=== PATIENT | male | born 1950 | race Caucasian/White ===

== ENCOUNTER → 2018-01-09 07:57 | Outpatient (CLI) | payer OTHER, MEDICARE, SELFPAY ==
[2018-01-09 09:38] LABS: Alanine Aminotransferase 31 IU/L (21-72); Albumin 4.1 g/dL (3.5-5.0); Albumin Globulin Ratio 1.5 (1.0-2.8); Alkaline Phosphatase 58 U/L (38-126); Aspartate Aminotransferase 22 IU/L (17-59); BUN Creatinine Ratio 16.7 (6-22); Bilirubin Total 0.6 mg/dL (0.2-1.3); Blood Urea Nitrogen 15 mg/dL (9-20); Carbon Dioxide 28 mmol/L (22-32); Chloride 108 mmol/L (98-107); Cholesterol 187 mg/dL (140-199); Estimated Glomerular Filt Rate > 60.0 mL/min (>60); Globulin 2.8 g/dL (1.7-4.1); Glucose 98 mg/dL (80-110); HDL Cholesterol 45 mg/dL (40-60); HEMOLYSIS < 15 (0-50); LDL Cholesterol Calculated 118 mg/dL (<100); Potassium 4.8 mmol/L (3.4-5.1); Sodium 148 mmol/L (137-145); Total Protein 6.9 g/dL (6.3-8.2); Triglycerides 120 mg/dL (35-150)
[2018-01-09 10:05] LABS: Prostate Specific Antigen Scrn 0.323 ng/mL (0.1-4.0)
== END ==
PROVIDERS: PCP Internal Medicine; Visit Provider Internal Medicine
DX: I10 Essential (primary) hypertension (principal); Z12.5 Encounter for screening for malignant neoplasm of prostate
CPT/HCPCS: 36415; 80053; 80061; G0103

== ENCOUNTER 2018-07-02 09:00 | Outpatient (RCR) | payer OTHER, SELFPAY ==
--- NOTE | 2018-06-17 10:26 | PT.OIE ---
Current Diagnoses Acute embolism and thrombosis of unspecified deep veins of unspecified lower extremity (06/17/18) Post-traumatic osteoarthritis, left ankle and foot (06/17/18) Aftercare following joint replacement surgery (06/17/18) Past Medical History (Last Reviewed 01/15/18 @ 10:25 by Saúl Palacios MD) Essential hypertension (Chronic 02/08/17) Heterozygous factor V Leiden mutation (Chronic 06/29/16) History of deep venous thrombosis in adulthood (Chronic 08/10/16) Past Surgical History (Last Reviewed 01/15/18 @ 10:25 by Saúl Palaciso MD) History of hip replacement (06/15/17) Provider Visit Care Team Role Provider Type Saúl Palacios MD Primary Care Provider Physician Specialty: Internal Medicine Address: [address] [place] [address], [id number] Email: [email or web address] Mack Hanson MD Attending Provider Non-Staff Specialty: Orthopedics Address: [address] [place] [address], [place] [id number] [place] [address], [phone] Fax: Email: Physical Therapy Initial Evaluation PT-OP-A Visit Information Start: 06/14/18 15:52 Freq: Status: Active Protocol: Document 06/17/18 08:59 [facility] (Rec: 06/17/18 10:10 [facility] [id number]) Out-Patient Physical Therapy Visit Information Visit Information Visit Type Initial Evaluation Visit Start Time 09:00 Visit Stop Time 09:45 Total Visit Minutes 45 Visit Number 1/10 Number of PIPELINE SYSTEMS OPERATOR Visits 0 PT-OP-B Current Condition Start: 06/14/18 15:52 Freq: Status: Active Protocol: Document 06/17/18 08:59 [facility] (Rec: 06/17/18 10:10 [facility] [id number]) Current Condition History of Current Condition Onset Date 04/01/18 Current Complaints L total ankle replacement History of Current Condition Pt reports he has had a difficult year. Pt had a fall that started his hip and ankle pain. Pt had L BRISEIDA last Jun and recovered well from that. He now had L total ankle surgery on 04/01/18. Pt is walking now in a boot and has been working on ROM. Pt was nonweightbearing for a while and has slowly progressed to full weight bearing. He follows up with MD on 06/27. Last X-ray showed good healing per patient. 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, return to [employer] biking, try to do some hiking PT-OP-C Subjective Start: 06/14/18 15:52 Freq: Status: Active Protocol: Document 06/17/18 08:59 [facility] (Rec: 06/17/18 10:10 [facility] [id number]) Patient Questionnaires Foot & Ankle Ability Measure- ADL and Sports FAAM-ADL Score 52 FAAM-ADL Impairment 20 to 39% Impaired (Score 50- 66) FAAM-Sport Score 2 FAAM-Sport Impairment 80 to 99% Impaired (Score 1-5) Lower Extremity Functional Scale LEFS Score 45 LEFS Impairment 40 to 59% Impaired (Score 32- 47) OP-PT Pain Assessment Location L ankle Pain Location Details L ankle laterally Intensity 3 Scale Used Numeric (1 - 10) Frequency Intermittent Pain Duration goes away upon sitting down Pain Aggravating Factors Standing Walking Other Pain Aggravating Factors flexing it Pain Alleviating Factors Cold Inactivity Sitting PT-OP-F Manual Assessment Start: 06/14/18 15:52 Freq: Status: Active Protocol: Document 06/17/18 08:59 [facility] (Rec: 06/17/18 10:10 [facility] [id number]) Manual Assessments Soft Tissue Assessment Soft Tissue Mobility Assessment Ankle & lat myofascial restrictions, likely mostly d/ t scar PT-OP-G Mobility & Gait Start: 06/14/18 15:52 Freq: Status: Active Protocol: Document 06/17/18 08:59 [facility] (Rec: 06/17/18 10:10 [facility] [id number]) OP Gait Assessment Comments Gait Comments Pt amb with CAM boot at this time with full WB. PT-OP-K Range of Motion Start: 06/14/18 15:52 Freq: Status: Active Protocol: Document 06/17/18 08:59 [facility] (Rec: 06/17/18 10:10 [facility] [id number]) Ankle and Foot Goniometric Range of Motion Ankle and Foot Measured in Degrees Right Active Testing Position Sitting Dorsiflexion with Knee Flexed 18 Plantarflexion 55 Inversion 30 Eversion 15 Left Active Dorsiflexion with Knee Flexed 2 Dorsiflexion with Knee Extended 0 Plantarflexion 49 Inversion 21 Eversion 10 Toe Range of Motion Toe Measured in Degrees Left Great Toe MTP Flexion Active (degrees) 10 MTP Extension Active (degrees) 30 MTP Extension Passive (degrees) 36 PT-OP-M Strength Start: 06/14/18 15:52 Freq: Status: Active Protocol: Document 06/17/18 08:59 [facility] (Rec: 06/17/18 10:10 [facility] [id number]) Hip Strength Hip Manual Muscle Testing Left Flexion (L2) 5 Normal Extension (S1) 3+ Fair+ Abduction 5 Normal External Rotation 4 Good Internal Rotation 4 Good Right Flexion (L2) 5 Normal Extension (S1) 4 Good Abduction 5 Normal External Rotation 5 Normal Internal Rotation 5 Normal Knee Strength Knee Manual Muscle Testing Right Flexion (S2) 4+ Good+ Extension (L3) 5 Normal Left Flexion (S2) 4+ Good+ Extension (L3) 4 Good Ankle/Foot Strength Ankle and Foot Manual Muscle Testing Right Dorsiflexion (L4) 5 Normal Plantarflexion (S1) 5 Normal Inversion 5 Normal Eversion (S1) 5 Normal Left Dorsiflexion (L4) 4 Good Plantarflexion (S1) 4 Good Inversion 4 Good Eversion (S1) 4 Good Comments PF tested seated PT-OP-Q Treatments Start: 06/14/18 15:52 Freq: Status: Active Protocol: Document 06/17/18 08:59 [facility] (Rec: 06/17/18 10:10 [facility] [id number]) Therapeutic Exercises Sitting Exercises ankle circles Sitting Exercise Name ankle circles-both directions Side left Comments cues for large kotlik towel scrunch Sitting Exercise Name towel scrunch Side bilateral ABCs Sitting Exercise Name Ankle ABCs Side left Ankle 4 way ROM Sitting Exercise Name DF/PF & inversion/eversion Side left Gastroc/soleus stretch Sitting Exercise Name long sit and short sit gastroc /soleus stretch Side left Self-Care/Home Management Treatment Education Other Education edu to cont wearing the boot until MD clears him not to and edu to cont icing to help with swelling PT-OP-T Assessment and Plan Start: 06/14/18 15:52 Freq: Status: Active Protocol: Document 06/17/18 08:59 [facility] (Rec: 06/17/18 10:26 [facility] [id number]) Physical Therapy Assessment Rehab Potential Rehabilitation Potential Excellent Evaluation Complexity Number of Personal Factors/Comorbidities 3 or More Number of Body Systems Impaired 4 or More Clinical Presentation at Evaluation Evolving Impairments Impairments Activity Tolerance Balance Functional Activities Functional Mobility Gait Pain ROM Soft Tissue Mobility Strength Goals ROM/strength Short Term Goal (STG) Pt will have L ankle AROM within 5 degrees of R side allowing greater activity performance STG Duration 07/15/18 Usp Goal (LTG) Pt will test 5/5 with all LE strength, making his progression back to typical activities easier. LTG Duration 08/15/18 walking Short Term Goal (STG) Pt will be able to do typical daily walking without boot with no greater than 2/10 pain . STG Duration 07/15/18 Usp Goal (LTG) Pt will be able to walk up to 2 miles with good gait mechanics and no greater than 1/10 pain. 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 LTG Duration 08/15/18 Assessment Summary Assessment Pt presents 11 weeks s/p L Total ankle replacement. He is still using CAM boot until he follows up with MD on 06/27/18 , where the MD will make the determination of further progression. Pt's referal is written for progression of ROM of ankle, subtalar, midfoot and toes. He is limited in all joints of L ankle and would benefit from skilled PT in order to help progress him back to his typical active lifestyle. Physical Therapy Plan Frequency and Duration Frequency of Treatment 1-2x/week Duration of Treatment 2 months Plan of Care Start Date 06/17/18 Plan of Care End Date 08/15/18 Therapeutic Interventions Therapeutic Interventions Aquatic Therapy Balance Training Gait Training Home Exercise Program Joint Mobilizations Manual Therapy Neuromuscular Re-education Patient/Caregiver Education Self-Care/Home Management Soft Tissue Mobilization Taping Therapeutic Activities Therapeutic Exercises Modalities Cold Pack/Ice Massage Electric Stimulation Hot Packs Infrared Therapy Iontophoresis Ultrasound Next Visit Focus/Plan Next Note Type Treatment Note Next Visit Plan DF & PF from floor, toe stretching, 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
--- NOTE | 2018-06-17 10:26 | PT.OPPOC ---
Current Diagnoses Acute embolism and thrombosis of unspecified deep veins of unspecified lower extremity (06/17/18) Post-traumatic osteoarthritis, left ankle and foot (06/17/18) Aftercare following joint replacement surgery (06/17/18) Provider Visit Care Team Role Provider Type Saúl Palacios MD Primary Care Provider Physician Specialty: Internal Medicine Address: [address] [place] [address], [id number] Email: [email or web address] Mack Hanson MD Attending Provider Non-Staff Specialty: Orthopedics Address: [address] [place] [address], [place] [id number], [place], [address] Fax: Email: Plan Of Care PT-OP-T Assessment and Plan Start: 06/14/18 15:52 Freq: Status: Active Protocol: Document 06/17/18 08:59 [facility] (Rec: 06/17/18 10:26 [facility] [id number]) Physical Therapy Assessment Rehab Potential Rehabilitation Potential Excellent Evaluation Complexity Number of Personal Factors/Comorbidities 3 or More Number of Body Systems Impaired 4 or More Clinical Presentation at Evaluation Evolving Impairments Impairments Activity Tolerance Balance Functional Activities Functional Mobility Gait Pain ROM Soft Tissue Mobility Strength Goals ROM/strength Short Term Goal (STG) Pt will have L ankle AROM within 5 degrees of R side allowing greater activity performance STG Duration 07/15/18 Planogrammer Goal (LTG) Pt will test 5/5 with all LE strength, making his progression back to typical activities easier. LTG Duration 08/15/18 walking Short Term Goal (STG) Pt will be able to do typical daily walking without boot with no greater than 2/10 pain . STG Duration 07/15/18 Half-Way Goal (LTG) Pt will be able to walk up to 2 miles with good gait mechanics and no greater than 1/10 pain. 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 LTG Duration 08/15/18 Assessment Summary Assessment Pt presents 11 weeks s/p L Total ankle replacement. He is still using CAM boot until he follows up with on 06/27/18 , where the MD will make the determination of further progression. Pt's referal is written for progression of ROM of ankle, subtalar, midfoot and toes. He is limited in all joints of L ankle and would benefit from skilled PT in order to help progress him back to his typical active lifestyle. Physical Therapy Plan Frequency and Duration Frequency of Treatment 1-2x/week Duration of Treatment 2 months Plan of Care Start Date 06/17/18 Plan of Care End Date 08/15/18 Therapeutic Interventions Therapeutic Interventions Aquatic Therapy Balance Training Gait Training Home Exercise Program Joint Mobilizations Manual Therapy Neuromuscular Re-education Patient/Caregiver Education Self-Care/Home Management Soft Tissue Mobilization Taping Therapeutic Activities Therapeutic Exercises Modalities Cold Pack/Ice Massage Electric Stimulation Hot Packs Infrared Therapy Iontophoresis Ultrasound Next Visit Focus/Plan Next Note Type Treatment Note Next Visit Plan DF & PF from floor, toe stretching, marble turkey picker, PF stretching Plan of Care Dates Plan of Care Start Date 06/17/18 Plan of Care End Date 08/15/18 Please Sign and Return: I have reviewed this Plan of Care and certify that the skilled therapy services above are required to meet the patient?s needs. Physician Signature Date Printed Name and Credentials Clinical Instructor Signature Printed Name and Credentials
--- NOTE | 2018-07-02 09:56 | PT.OTN ---
Current Diagnoses Acute embolism and thrombosis of unspecified deep veins of unspecified lower extremity (07/02/18) Post-traumatic osteoarthritis, left ankle and foot (07/02/18) Aftercare following joint replacement surgery (07/02/18) Physical Therapy Treatment Note PT-OP-A Visit Information Start: 06/14/18 15:52 Freq: Status: Active Protocol: Document 07/02/18 09:08 [facility] (Rec: 07/02/18 09:56 [facility] [id number]) Out-Patient Physical Therapy Visit Information Visit Information Visit Type Treatment Note Visit Start Time 09:00 Visit Stop Time 09:45 Total Visit Minutes 45 Visit Number Number of SOLAR LAB TECHNICIAN Visits 0 PT-OP-B Current Condition Start: 06/14/18 15:52 Freq: Status: Active Protocol: Document 06/17/18 08:59 [facility] (Rec: 06/17/18 10:10 [facility] [id number]) Current Condition History of Current Condition Onset Date 04/01/18 Current Complaints L total ankle replacement History of Current Condition Pt reports he has had a difficult year. Pt had a fall that started his hip and ankle pain. Pt had L BRISEIDA last Jun and recovered well from that. He now had L total ankle surgery on 04/01/18. Pt is walking now in a boot and has been working on ROM. Pt was nonweightbearing for a while and has slowly progressed to full weight bearing. He follows up with MD on 06/27. Last X-ray showed good healing per patient. 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 Pt reports doctor took x rays and cleared him to wean out of boot. He has tried doing a day without it and his ankle got swollen so he wore it the next day. Presents without boot today. PT-OP-F Manual Assessment Start: 06/14/18 15:52 Freq: Status: Active Protocol: Document 06/17/18 08:59 [facility] (Rec: 06/17/18 10:10 [facility] [id number]) Manual Assessments Soft Tissue Assessment Soft Tissue Mobility Assessment Ankle & lat myofascial restrictions, likely mostly d/ t scar PT-OP-G Mobility & Gait Start: 06/14/18 15:52 Freq: Status: Active Protocol: Document 06/17/18 08:59 [facility] (Rec: 06/17/18 10:10 [facility] [id number]) OP Gait Assessment Comments Gait Comments Pt amb with CAM boot at this time with full WB. PT-OP-K Range of Motion Start: 06/14/18 15:52 Freq: Status: Active Protocol: Document 06/17/18 08:59 [facility] (Rec: 06/17/18 10:10 [facility] [id number]) Ankle and Foot Goniometric Range of Motion Ankle and Foot Measured in Degrees Right Active Testing Position Sitting Dorsiflexion with Knee Flexed 18 Plantarflexion 55 Inversion 30 Eversion 15 Left Active Dorsiflexion with Knee Flexed 2 Dorsiflexion with Knee Extended 0 Plantarflexion 49 Inversion 21 Eversion 10 Toe Range of Motion Toe Measured in Degrees Left Great Toe MTP Flexion Active (degrees) 10 MTP Extension Active (degrees) 30 MTP Extension Passive (degrees) 36 PT-OP-M Strength Start: 06/14/18 15:52 Freq: Status: Active Protocol: Document 06/17/18 08:59 [facility] (Rec: 06/17/18 10:10 [facility] [id number]) Hip Strength Hip Manual Muscle Testing Left Flexion (L2) 5 Normal Extension (S1) 3+ Fair+ Abduction 5 Normal External Rotation 4 Good Internal Rotation 4 Good Right Flexion (L2) 5 Normal Extension (S1) 4 Good Abduction 5 Normal External Rotation 5 Normal Internal Rotation 5 Normal Knee Strength Knee Manual Muscle Testing Right Flexion (S2) 4+ Good+ Extension (L3) 5 Normal Left Flexion (S2) 4+ Good+ Extension (L3) 4 Good Ankle/Foot Strength Ankle and Foot Manual Muscle Testing Right Dorsiflexion (L4) 5 Normal Plantarflexion (S1) 5 Normal Inversion 5 Normal Eversion (S1) 5 Normal Left Dorsiflexion (L4) 4 Good Plantarflexion (S1) 4 Good Inversion 4 Good Eversion (S1) 4 Good Comments PF tested seated PT-OP-Q Treatments Start: 06/14/18 15:52 Freq: Status: Active Protocol: Document 07/02/18 09:08 [facility] (Rec: 07/02/18 09:56 [facility] [id number]) Cardio Equipment Recumbent Elliptical (Biodex) Duration (Minutes) 5 Resistance 3-5 Seat Position 13 Therapeutic Exercises Sitting Exercises tband Sitting Exercise Name inv, eversion & DF Equipment Used L1 Reps/Minutes 15 ea DF Sitting Exercise Name DF Reps/Minutes 20 Comments w/knee bent to 90 and heel on floor marbles Sitting Exercise 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 Reps/Minutes 15 Standing Exercises heel raise Standing Exercise Name heel raise Reps/Minutes 2x10 gastroc Standing Exercise Name BRENNON Reps/Minutes 30 serc Gait Training Gait Activity mirror Description gait in mirror Comments focus on dec lat leaning & improved push off Manual Therapy Treatment Soft Tissue Mobilization scar tissue Body Location scar tissue ant foot Mobilization Type Myofascial Release Rolling Comments w/ passive DF & PF PT-OP-T Assessment and Plan Start: 06/14/18 15:52 Freq: Status: Active Protocol: Document 07/02/18 09:08 [facility] (Rec: 07/02/18 09:56 [facility] [id number]) Physical Therapy Assessment Goals ROM/strength Short Term Goal (STG) Pt will have L ankle AROM within 5 degrees of R side allowing greater activity performance STG Duration 07/15/18 Crabber Goal (LTG) Pt will test 5/5 with all LE strength, making his progression back to typical activities easier. LTG Duration 08/15/18 walking Short Term Goal (STG) Pt will be able to do typical daily walking without boot with no greater than 2/10 pain . STG Duration 07/15/18 [facility] Goal (LTG) Pt will be able to walk up to 2 miles with good gait mechanics and no greater than 1/10 pain. 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 LTG Duration 08/15/18 Assessment Summary Assessment Pt is doing well with ROM today and was able to progress with strengthening today. He cont to have lat lean with gait, which is able to improve with use of mirror and cueing . Physical Therapy Plan Frequency and Duration Frequency of Treatment 1-2x/week Duration of Treatment 2 months Plan of Care Start Date 06/17/18 Plan of Care End Date 08/15/18 Next Visit Focus/Plan Next Note Type Treatment Note Next Visit Plan big toe stretching & mobilization, pt self stretching into inversion, eversion & PF, cont to work on gait mechanics, start hip strengthening & balance
--- NOTE | 2018-08-26 11:09 | PT.OPDS ---
Current Diagnoses Acute embolism and thrombosis of unspecified deep veins of unspecified lower extremity (07/02/18) Post-traumatic osteoarthritis, left ankle and foot (07/02/18) Aftercare following joint replacement surgery (07/02/18) Provider Visit Care Team Role Provider Type Saúl Palacios MD Primary Care Provider Physician Specialty: Internal Medicine Address: [address] [place] [address], [phone] Email: [email or web address] Mack Hanson MD Attending Provider Non-Staff Specialty: Orthopedics Address: [address] [place] [address], [address], [place], [address] Fax: Email: Visit Number Visit Number Discharge Summary PT-OP-B Current Condition Start: 06/14/18 15:52 Freq: Status: Active Protocol: Document 06/17/18 08:59 [facility] (Rec: 06/17/18 10:10 [facility] [id number]) Current Condition History of Current Condition Onset Date 04/01/18 Current Complaints L total ankle replacement History of Current Condition Pt reports he has had a difficult year. Pt had a fall that started his hip and ankle pain. Pt had L BRISEIDA last Jun and recovered well from that. He now had L total ankle surgery on 04/01/18. Pt is walking now in a boot and has been working on ROM. Pt was nonweightbearing for a while and has slowly progressed to full weight bearing. He follows up with MD on 06/27. Last X-ray showed good healing per patient. 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 Pt reports doctor took x rays and cleared him to wean out of boot. He has tried doing a day without it and his ankle got swollen so he wore it the next day. Presents without boot today. PT-OP-F Manual Assessment Start: 06/14/18 15:52 Freq: Status: Active Protocol: Document 06/17/18 08:59 [facility] (Rec: 06/17/18 10:10 [facility] [id number]) Manual Assessments Soft Tissue Assessment Soft Tissue Mobility Assessment Ankle & lat myofascial restrictions, likely mostly d/ t scar PT-OP-G Mobility & Gait Start: 06/14/18 15:52 Freq: Status: Active Protocol: Document 06/17/18 08:59 [facility] (Rec: 06/17/18 10:10 [facility] [id number]) OP Gait Assessment Comments Gait Comments Pt amb with CAM boot at this time with full WB. PT-OP-K Range of Motion Start: 06/14/18 15:52 Freq: Status: Active Protocol: Document 06/17/18 08:59 [facility] (Rec: 06/17/18 10:10 [facility] [id number]) Ankle and Foot Goniometric Range of Motion Ankle and Foot Measured in Degrees Right Active Testing Position Sitting Dorsiflexion with Knee Flexed 18 Plantarflexion 55 Inversion 30 Eversion 15 Left Active Dorsiflexion with Knee Flexed 2 Dorsiflexion with Knee Extended 0 Plantarflexion 49 Inversion 21 Eversion 10 Toe Range of Motion Toe Measured in Degrees Left Great Toe MTP Flexion Active (degrees) 10 MTP Extension Active (degrees) 30 MTP Extension Passive (degrees) 36 PT-OP-M Strength Start: 06/14/18 15:52 Freq: Status: Active Protocol: Document 06/17/18 08:59 [facility] (Rec: 06/17/18 10:10 [facility] [id number]) Hip Strength Hip Manual Muscle Testing Left Flexion (L2) 5 Normal Extension (S1) 3+ Fair+ Abduction 5 Normal External Rotation 4 Good Internal Rotation 4 Good Right Flexion (L2) 5 Normal Extension (S1) 4 Good Abduction 5 Normal External Rotation 5 Normal Internal Rotation 5 Normal Knee Strength Knee Manual Muscle Testing Right Flexion (S2) 4+ Good+ Extension (L3) 5 Normal Left Flexion (S2) 4+ Good+ Extension (L3) 4 Good Ankle/Foot Strength Ankle and Foot Manual Muscle Testing Right Dorsiflexion (L4) 5 Normal Plantarflexion (S1) 5 Normal Inversion 5 Normal Eversion (S1) 5 Normal Left Dorsiflexion (L4) 4 Good Plantarflexion (S1) 4 Good Inversion 4 Good Eversion (S1) 4 Good Comments PF tested seated PT-OP-T Assessment and Plan Start: 06/14/18 15:52 Freq: Status: Active Protocol: Document 08/26/18 11:09 [facility] (Rec: 08/26/18 11:09 [facility] [id number]) Physical Therapy Plan Discharge Physical Therapy Discharge Reasons Patient Request Discharge Comments Pt seen for 2 appointments and then cancelled all further appointments reporting he felt better. D/c per pt request.
== END 2018-08-28 09:57 | disposition home or self-care (01) ==
LOC: PHYS 09:00
PROVIDERS: PCP Internal Medicine; Visit Provider Orthopaedic Surgery Foot and Ankle Surgery
DX: M19.172 Post-traumatic osteoarthritis, left ankle and foot (principal); I82.409 Acute embolism and thrombosis of unspecified deep veins of unspecified lower extremity; Z47.1 Aftercare following joint replacement surgery
CPT/HCPCS: 97110; 97140; 97162

== ENCOUNTER → 2019-02-18 07:28 | Outpatient (CLI) | payer OTHER, SELFPAY ==
[2019-02-18 08:00] LABS: Add Manual Diff / Slide Review NO; Basophils Absolute Auto 100 /uL (0-100); Basophils Percent Auto 1.3 % (0-2); Eosinophils Absolute Auto 200 /uL (0-450); Eosinophils Percent Auto 3.6 % (2-4); Hematocrit 48.1 % (41-53); Hemoglobin 15.9 g/dL (13.5-17.5); Lymphocytes Absolute Auto 1500 /uL (1100-4500); Mean Corpuscular HGB Conc 32.9 % (30-36); Mean Corpuscular Hemoglobin 26.5 PG (26-34); Mean Corpuscular Volume 80.5 fL (80-100); Monocytes Absolute Auto 400 /uL (0-900); Monocytes Percent Auto 7.9 % (3-14); Neutrophils Absolute Auto 3200 /uL (1500-7000); Neutrophils Percent Auto 59.2 % (50-75); Platelet Count 231 X10^3/uL (150-400); Red Blood Cell Count 5.98 X10^6/uL (4.5-5.9); Red Cell Distribution Width 15.5 % (11.6-14.8); White Blood Cell Count 5.4 X10^3/uL (4.5-11.0)
[2019-02-18 08:08] LABS: Alanine Aminotransferase 30 IU/L (21-72); Albumin 4.3 g/dL (3.5-5.0); Albumin Globulin Ratio 1.3 (1.0-2.8); Alkaline Phosphatase 60 U/L (38-126); Aspartate Aminotransferase 26 IU/L (17-59); BUN Creatinine Ratio 18.9 (6-22); Bilirubin Total 0.6 mg/dL (0.2-1.3); Blood Urea Nitrogen 17 mg/dL (9-20); Carbon Dioxide 29 mmol/L (22-32); Chloride 103 mmol/L (98-107); Cholesterol 216 mg/dL (140-199); Estimated Glomerular Filt Rate > 60.0 mL/min (>60); Globulin 3.2 g/dL (1.7-4.1); Glucose 102 mg/dL (80-110); HDL Cholesterol 39 mg/dL (40-60); HEMOLYSIS < 15 (0-50); LDL Cholesterol Calculated 147 mg/dL (<100); Potassium 4.2 mmol/L (3.4-5.1); Sodium 142 mmol/L (137-145); Total Protein 7.5 g/dL (6.3-8.2); Triglycerides 149 mg/dL (35-150)
[2019-02-18 08:37] LABS: Prostate Specific Antigen Scrn 0.282 ng/mL (0.1-4.0)
== END ==
PROVIDERS: PCP Internal Medicine; Visit Provider Internal Medicine
DX: D68.51 Activated protein C resistance (principal); I10 Essential (primary) hypertension; Z79.01 Long term (current) use of anticoagulants; Z86.718 Personal history of other venous thrombosis and embolism; Z12.5 Encounter for screening for malignant neoplasm of prostate
CPT/HCPCS: 36415; 80053; 80061; 85025; G0103

== ENCOUNTER → 2021-06-15 07:04 | Outpatient (CLI) | payer MEDICARE, OTHER, SELFPAY ==
[2021-06-15 09:26] LABS: Add Manual Diff / Slide Review NO; Basophils Absolute Auto 0 /uL (0-100); Basophils Percent Auto 0.7 % (0-2); Eosinophils Absolute Auto 200 /uL (0-450); Eosinophils Percent Auto 3.9 % (2-4); Hematocrit 47.4 % (41-53); Hemoglobin 15.8 g/dL (13.5-17.5); Lymphocytes Absolute Auto 1100 /uL (1100-4500); Lymphocytes Percent Auto 23.4 % (25-40); Mean Corpuscular HGB Conc 33.3 % (30-36); Mean Corpuscular Hemoglobin 26.7 PG (26-34); Mean Corpuscular Volume 80.2 fL (80-100); Monocytes Absolute Auto 700 /uL (0-900); Neutrophils Absolute Auto 2800 /uL (1500-7000); Platelet Count 182 X10^3/uL (150-400); Red Blood Cell Count 5.92 X10^6/uL (4.5-5.9); Red Cell Distribution Width 15.2 % (11.6-14.8); White Blood Cell Count 4.7 X10^3/uL (4.5-11.0)
[2021-06-15 10:08] LABS: Alanine Aminotransferase 25 IU/L (<50); Albumin 4.3 g/dL (3.5-5.0); Albumin Globulin Ratio 1.5 (1.0-2.8); Alkaline Phosphatase 56 U/L (38-126); Aspartate Aminotransferase 27 IU/L (17-59); BUN Creatinine Ratio 13.9 (6-22); Bilirubin Total 0.7 mg/dL (0.2-1.3); Blood Urea Nitrogen 16 mg/dL (9-20); Calcium 10.3 mg/dL (8.4-10.2); Carbon Dioxide 30 mmol/L (22-32); Chloride 104 mmol/L (98-107); Cholesterol 199 mg/dL (140-199); Estimated Glomerular Filt Rate > 60.0 mL/min (>60); Globulin 2.9 g/dL (1.7-4.1); Glucose 91 mg/dL (80-110); HDL Cholesterol 30 mg/dL (40-60); HEMOLYSIS < 15 (0-50); LDL Cholesterol Calculated 138 mg/dL (<100); Sodium 142 mmol/L (137-145); Total Protein 7.2 g/dL (6.3-8.2); Triglycerides 153 mg/dL (35-150)
[2021-06-15 10:33] LABS: Prostate Specific Antigen Scrn 0.382 ng/mL (0.1-4.0)
== END ==
PROVIDERS: PCP Internal Medicine; Referring Provider Internal Medicine; Visit Provider Internal Medicine
DX: I10 Essential (primary) hypertension (principal); Z12.5 Encounter for screening for malignant neoplasm of prostate; D68.51 Activated protein C resistance; Z86.718 Personal history of other venous thrombosis and embolism
CPT/HCPCS: 36415; 80053; 80061; 85025; G0103

== ENCOUNTER → 2022-08-04 11:47 | Outpatient (CLI) | payer MEDICARE, OTHER, SELFPAY ==
[2022-08-04 13:09] LABS: Add Manual Diff / Slide Review NO; Basophils Absolute Auto 0 /uL (0-100); Basophils Percent Auto 0.8 % (0-2); Eosinophils Absolute Auto 300 /uL (0-450); Eosinophils Percent Auto 5.5 % (2-4); Hematocrit 49.2 % (41-53); Hemoglobin 16.1 g/dL (13.5-17.5); Lymphocytes Absolute Auto 1800 /uL (1100-4500); Lymphocytes Percent Auto 33.3 % (25-40); Mean Corpuscular HGB Conc 32.7 % (30-36); Mean Corpuscular Hemoglobin 26.3 PG (26-34); Mean Corpuscular Volume 80.3 fL (80-100); Monocytes Absolute Auto 500 /uL (0-900); Monocytes Percent Auto 8.9 % (3-14); Neutrophils Absolute Auto 2700 /uL (1500-7000); Neutrophils Percent Auto 51.5 % (50-75); Platelet Count 190 X10^3/uL (150-400); Red Blood Cell Count 6.12 X10^6/uL (4.5-5.9); Red Cell Distribution Width 15.8 % (11.6-14.8); White Blood Cell Count 5.3 X10^3/uL (4.5-11.0)
[2022-08-04 13:40] LABS: Alanine Aminotransferase 26 IU/L (<50); Albumin 4.3 g/dL (3.5-5.0); Albumin Globulin Ratio 1.3 (1.0-2.8); Alkaline Phosphatase 61 U/L (38-126); Aspartate Aminotransferase 26 IU/L (17-59); BUN Creatinine Ratio 18.8 (6-22); Bilirubin Total 0.6 mg/dL (0.2-1.3); Blood Urea Nitrogen 18 mg/dL (9-20); Calcium 9.9 mg/dL (8.4-10.2); Carbon Dioxide 28 mmol/L (22-32); Chloride 104 mmol/L (98-107); Estimated Glomerular Filt Rate > 60 mL/min (>60); Globulin 3.2 g/dL (1.7-4.1); Glucose 80 mg/dL (80-110); HEMOLYSIS < 15 (0-50); Potassium 4.4 mmol/L (3.4-5.1); Sodium 139 mmol/L (137-145); Total Protein 7.5 g/dL (6.3-8.2)
== END ==
PROVIDERS: PCP Internal Medicine; Referring Provider Internal Medicine; Visit Provider Internal Medicine
DX: D68.51 Activated protein C resistance (principal); I10 Essential (primary) hypertension; Z86.718 Personal history of other venous thrombosis and embolism
CPT/HCPCS: 36415; 80053; 85025

== ENCOUNTER 2022-11-26 09:32 | Emergency (ER) | payer MEDICARE, OTHER, SELFPAY ==
[2022-11-26 09:35] VITALS: BP 147/87; PULSE 62; RESP 16; TEMP 36.3; O2SAT 97; BMI 28.5
[2022-11-26 09:43] VITALS: PULSE 62; O2SAT 98
[2022-11-26 10:00] VITALS: PULSE 56; O2SAT 96
--- NOTE | 2022-11-26 10:22 | ED.HA ---
HPI - Headache General Chief Complaint: Headache Stated Complaint: migraine headache per pt Time Seen by Provider: 11/26/22 09:57 Source: patient, RN notes reviewed and old records reviewed Mode of arrival: Ambulatory Limitations: no limitations History of Present Illness HPI Narrative: This is a 72-year-old male history of factor 5 Leiden, pulmonary emboli, hypertension who presents with complaint of headache for the past week. Patient states insert started gradually he is had headaches in the past typically in the evenings or night times but this is more intense than his typical. Has been increasing over time and has been persistent. We will sometimes go away but has overall been present the entire time. He denies any sudden thunderclap or acute onset. Describes it as sort of all over. No rash or skin changes. Does state it is probably 1 of the worst headaches he is had. He states he has been trying Tylenol without any improvement. He notes that he would traveled overseas the [place] area was very warm over there. He states it was not a very pleasant stay but denies any other infectious contacts or other changes. Denies any trauma. He states it radiates down his neck little bit but no trouble moving head and movement does not worsened it. He denies any back pain. He denies any vision changes, light seem to bother it a little bit but not significant photophobia or phonophobia. No chest pain, no shortness of breath, no nausea no vomiting. No diarrhea constipation, no dysuria urgency or frequency. He noticed urine was little bit darker so he is backed off on the Tylenol. He denies any numbness, tingling or weakness, no vertigo, no difficulty with balance or gait. Patient states he did notice he was sweaty nighttime 1 or 2 nights. He has not had any fevers that he is aware of. He denies any upper respiratory congestive symptoms. He is on Eliquis after developing pulmonary emboli 5 or 6 years ago, states he had blood work sent and was told that he is hypercoagulable. He does not know the name of that. Patient states he does take medication for hypertension. His only medications are Eliquis and lisinopril according to the patient. He is had orthopedic surgeries in the past including ankle, hip and elbow, appendectomy. Chews tobacco, no alcohol, no illicit. Dr. Palacios is his primary care. Related Data Previous Rx's Medication Instructions Recorded apixaban 5 mg tablet (Eliquis) 5 mg PO BID #180 tabs 08/04/22 lisinopril 40 mg tablet 40 mg PO DAILY #90 tabs 08/04/22 amoxicillin 875 mg-potassium 1 tab PO Q8H #30 tabs 11/26/22 clavulanate 125 mg tablet hydrocodone 5 mg-acetaminophen 325 1 tab PO Q6H PRN pain #10 tabs 11/26/22 mg tablet Allergies Allergy/AdvReac Type Severity Reaction Status Date / Time No Known Drug Allergies Allergy Verified 08/04/22 11:30 Review of Systems Review of Systems ROS Unobtainable: All systems reviewed & are unremarkable except as noted in HPI and below Patient History Medical History 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 keisha/jehovah's witness: [employer] leisure activities: exercise and fishing Smoking Status: Never smoker Tobacco: How many years used: 0 Smokeless tobacco user: chewing tobacco quit status: has quit before second hand exposure: No alcohol intake: former substance use type: does not use Smoking Status: Never smoker Exam Narrative Exam Narrative: GEN: well nourished, well appearing male, alert and oriented x 3, patient appears to be in mild distress. HEENT: Atraumatic, pupils are equal round reactive to light, extraocular movements are intact, no photophobia, no phonophobia nares are clear no temporal tenderness,, TMs are clear with no fluid, there is no conjunctival pallor. Throat is clear without any exudates, erythema, tonsillar enlargement or uvular deviation HEART: Regular rate and rhythm without murmur, clicks, rubs. No carotid bruits, pulses are equal in upper and lower extremities LUNGS:Lungs clear to auscultation, no wheezes, rales, crackles, chest moves symmetrically ABD:bowel sounds normal, soft, non-tender, no guarding, rebound, rigidity, no masses noted, no hepatosplenomegaly :No CVA tenderness MSCL: Non-tender, no muscle atrophy, muscles strength 5/5 upper and lower extremities, full range of motion, normal gait NEURO:CN 2-12 intact, sensation normal, reflexes 2/4 upper and lower extremities. finger nose finger test normal, heel sahni test normal. No dysarthria. No aphasia. SKIN: No rash, erythema or other skin changes appreciated. Initial Vital Signs Initial Vital Signs: Vital Signs Temperature 97.3 F L 11/26/22 09:35 Pulse Rate 62 11/26/22 09:35 Respiratory Rate 16 11/26/22 09:35 Blood Pressure 147/87 H 11/26/22 09:35 Pulse Oximetry 97 11/26/22 09:35 Oxygen Delivery Method Room Air 11/26/22 09:35 Course Orders Ordered: ED Orders 11/26/22 09:54 CRP [C-Reactive Protein Quant] Stat Complete Blood Count AUTO DIFF Stat Comprehensive Metabolic Panel Stat ESR [Erythrocyte Sedimentation Rate] Stat PTT Partial Thromboplastin Jhon Stat Procalcitonin Stat Prothrombin Time INR Stat 11/26/22 10:32 CT head/brain wo con Stat Discontinued Medications Hydrocodone Bitart/Acetaminophen (Hydrocodone/Acet 5/325 Tablet) 2 tab PO NOW ONE Stop: 11/26/22 12:14 Last Admin: 11/26/22 12:19 Dose: 2 tab Documented By: ANGELO Sodium Chloride (Normal Saline 0.9%) 1,000 mls @ 1,000 mls/hr IV BOLUS ONE Stop: 11/26/22 11:31 Last Infusion: 11/26/22 12:10 Dose: 0 mls/hr Documented By: Admin: 11/26/22 10:52 Dose: 1,000 mls/hr Documented By: MPO Ketorolac Tromethamine (Ketorolac 30 Mg/Ml Vial) 15 mg IV NOW ONE Stop: 11/26/22 11:20 Last Admin: 11/26/22 11:25 Dose: 15 mg Documented By: ROSHNI Metoclopramide HCl (Metoclopramide 10 Mg/2 Ml Inj) 10 mg IV NOW ONE Stop: 11/26/22 10:33 Last Admin: 11/26/22 10:52 Dose: 10 mg Documented By: ROSHNI Vital Signs Vital signs: Vital Signs - 8 hr 11/26/22 09:35 11/26/22 09:43 11/26/22 10:00 Temperature 97.3 F L Pulse Rate 62 62 56 L Respiratory Rate 16 Blood Pressure 147/87 H Pulse Oximetry 97 98 96 Oxygen Delivery Method Room Air 11/26/22 12:31 Temperature Pulse Rate 62 Respiratory Rate 16 Blood Pressure 134/77 Pulse Oximetry 97 Oxygen Delivery Method Room Air MDM - Headache Lab Data 11/26/22 09:54 11/26/22 09:54 Labs: Lab Results 11/26/22 11/26/22 11/26/22 Range/Units 09:54 09:54 09:54 WBC 6.0 (4.5-11.0) X10^3/uL RBC 5.68 (4.5-5.9) X10^6/uL Hgb 15.0 (13.5-17.5) g/dL Hct 45.1 (41-53) % MCV 79.4 L (80-100) fL MCH 26.5 (26-34) PG MCHC 33.3 (30-36) % RDW 15.3 H (11.6-14.8) % Plt Count 196 (150-400) X10^3/uL Neut % (Auto) 75.3 H (50-75) % Lymph % (Auto) 14.1 L (25-40) % Wilcox % (Auto) 6.3 (3-14) % Eos % (Auto) 3.6 (2-4) % Baso % (Auto) 0.7 (0-2) % Neut # (Auto) 4500 (8298-2225) /uL Lymph # (Auto) 800 L (9146-0229) /uL Wilcox # (Auto) 400 (0-900) /uL Eos # (Auto) 200 (0-450) /uL Baso # (Auto) 0 (0-100) /uL ESR (0-15) MM/HR PT 14.7 H (10.1-12.7) SECONDS INR 1.3 (0.9-1.3) APTT 33 (26-36) SECONDS Sodium 137 (137-145) mmol/L Potassium 4.4 (3.4-5.1) mmol/L Chloride 104 (98-107) mmol/L Carbon Dioxide 26 (22-32) mmol/L BUN 15 (9-20) mg/dL Creatinine 0.85 (0.66-1.25) mg/dL Estimated GFR > 60 (>60) mL/min BUN/Creatinine Ratio 17.6 (6-22) Glucose 109 (80-110) mg/dL Calcium 9.4 (8.4-10.2) mg/dL Total Bilirubin 0.8 (0.2-1.3) mg/dL AST 45 (17-59) IU/L ALT 98 H (<50) IU/L Alkaline Phosphatase 154 H (38-126) U/L C-Reactive Protein (<1.0) mg/dL Total Protein 7.3 (6.3-8.2) g/dL Albumin 4.0 (3.5-5.0) g/dL Globulin 3.3 (1.7-4.1) g/dL Albumin/Globulin Ratio 1.2 (1.0-2.8) Procalcitonin 0.29 (<0.5) ng/mL 11/26/22 11/26/22 Range/Units 09:54 09:54 WBC (4.5-11.0) X10^3/uL RBC (4.5-5.9) X10^6/uL Hgb (13.5-17.5) g/dL Hct (41-53) % MCV (80-100) fL MCH (26-34) PG MCHC (30-36) % RDW (11.6-14.8) % Plt Count (150-400) X10^3/uL Neut % (Auto) (50-75) % Lymph % (Auto) (25-40) % Wilcox % (Auto) (3-14) % Eos % (Auto) (2-4) % Baso % (Auto) (0-2) % Neut # (Auto) (1024-1111) /uL Lymph # (Auto) (9093-8231) /uL Wilcox # (Auto) (0-900) /uL Eos # (Auto) (0-450) /uL Baso # (Auto) (0-100) /uL ESR 9 (0-15) MM/HR PT (10.1-12.7) SECONDS INR (0.9-1.3) APTT (26-36) SECONDS Sodium (137-145) mmol/L Potassium (3.4-5.1) mmol/L Chloride (98-107) mmol/L Carbon Dioxide (22-32) mmol/L BUN (9-20) mg/dL Creatinine (0.66-1.25) mg/dL Estimated GFR (>60) mL/min BUN/Creatinine Ratio (6-22) Glucose (80-110) mg/dL Calcium (8.4-10.2) mg/dL Total Bilirubin (0.2-1.3) mg/dL AST (17-59) IU/L ALT (<50) IU/L Alkaline Phosphatase (38-126) U/L C-Reactive Protein 3.1 H (<1.0) mg/dL Total Protein (6.3-8.2) g/dL Albumin (3.5-5.0) g/dL Globulin (1.7-4.1) g/dL Albumin/Globulin Ratio (1.0-2.8) Procalcitonin (<0.5) ng/mL MDM Narrative Medical decision making narrative: 72-year-old male with gradual onset worsening headache he is anticoagulated no recent trauma, he does not have any other red flag symptoms noted he was sweaty at night 1 or 2 nights but no other function infectious changes. Patient has tried Tylenol without improvement. No acute neurologic changes on examination. His exam is overall benign. No significant photophobia or phonophobia come he is not had migraines in the past. Patient denies sudden thunderclap onset and states that was sort of gradual he is had headaches on and off at nighttime in the past but this is more persistent and more intense. Head CT, labs were obtained. Head CT shows pansinusitis of the ethmoid, sphenoid and left maxillary, no bleed, no mass no other acute changes. Labs show normal white count but slight leftward shift, normal electrolytes renal function, AST ALT phos are slightly elevated C-reactive protein 3.1. Pro callus negative. ESR is 9. After further discussion does describe a lot of sinus pressure. Patient has been using nasal saline and Flonase as needed. Discussed with patient will cover for sinusitis he did have some sweats but no other documented fevers. He has been doing appropriate therapies for potential sinusitis not finding other acute changes or examination findings that prompt me for lumbar puncture or further workup. Patient received fluids and medication on recheck. Patient had some improvement he still little bit uncomfortable we will give a dose of oral pain medication here. Discussed with patient plan, return precautions, he does think he likely has a sinusitis and does not feel for need for further workup. Discharge Plan Departure Patient Disposition: Home Clinical Impression: Pansinusitis Instructions: DI for Sinusitis Activity Restrictions/Additional Instructions: Your imaging shows changes to the sinuses of your ethmoid, left frontal maxillary and sphenoid sinuses consistent with some infection. This maybe causing your headache. I would recommend Flonase, antibiotic and nasal rinses to see if this improves your symptoms. Use Flonase 1-2 sprays to both nostrils once daily. You may take 1-2 tablets of narcotic pain medication every 6 hours needed. This medication can make you sleepy do not drive, perform hazardous activities or make any major decisions while taking it. This medication will make you constipated please take a stool softener once to twice daily until stools are soft and regular. Take oral antibiotics until completed. Prescription sent to [facility] in [place]. Please return for fevers if you are having worsening headaches, new vision changes, new numbness, tingling weakness, difficulty with moving your extremities, persistent vomiting, passing out, new chest pain or shortness of breath or other new or concerning changes. Prescriptions: New amoxicillin-pot clavulanate 875-125 mg tablet 1 tab PO Q8H Qty: 30 0RF hydrocodone-acetaminophen 5-325 mg tablet 1 tab PO Q6H PRN (Reason: pain) Qty: 10 0RF No Action Eliquis 5 mg tablet 5 mg PO BID Qty: 180 3RF lisinopril 40 mg tablet 40 mg PO DAILY Qty: 90 3RF Hold Instructions: no change in bp Referrals: Saúl Palacios MD [Primary Care Provider] - Stand Alone Forms: Patient Portal/API
--- NOTE | 2022-11-26 10:32 | DI.CT.S_ITS ---
PROCEDURE: CT HEAD/BRAIN WO CON INDICATIONS: huffman x 1 week, no resolution on apixaban TECHNIQUE: Noncontrast 4.5 mm thick angled axial sections acquired from the foramen magnum to the vertex, with coronal and sagittal reformats. For radiation dose reduction, the following was used: automated exposure control, adjustment of mA and/or kV according to patient size. COMPARISON: None. FINDINGS: Image quality: Excellent. CSF spaces: Basal cisterns are patent. No extra-axial fluid collections. Ventricles are normal in size and shape. Brain: No midline shift. No intracranial masses or hemorrhage. West-white matter interface is normal. Skull and face: Calvarium and visualized facial bones are intact, without suspicious lesions. Sinuses: Moderate mucosal thickening involving multiple ethmoid sinuses as well as the frontal left maxillary, and sphenoid sinuses. Mastoid air cells appear clear. IMPRESSION: CT head without acute intracranial abnormalities. Pansinus disease most pronounced in the ethmoid sinuses. Dictated by: Dawson Trejo M.D. on 11/26/2022 at 9:55 Approved by: Dawson Trejo M.D. on 11/26/2022 at 9:57
[2022-11-26 10:43] LABS: INR 1.3 (0.9-1.3); Prothrombin Time 14.7 SECONDS (10.1-12.7)
[2022-11-26] MEDS: SODIUM CHLORIDE 0.9% 1,000 ML 1000 ML IV (10:52)
[2022-11-26] MEDS: METOCLOPRAMIDE 10 MG/2 ML INJ IV (10:52)
[2022-11-26 11:03] LABS: Alanine Aminotransferase 98 IU/L (<50); Albumin Globulin Ratio 1.2 (1.0-2.8); Alkaline Phosphatase 154 U/L (38-126); Aspartate Aminotransferase 45 IU/L (17-59); BUN Creatinine Ratio 17.6 (6-22); Bilirubin Total 0.8 mg/dL (0.2-1.3); Blood Urea Nitrogen 15 mg/dL (9-20); Calcium 9.4 mg/dL (8.4-10.2); Carbon Dioxide 26 mmol/L (22-32); Chloride 104 mmol/L (98-107); Estimated Glomerular Filt Rate > 60 mL/min (>60); Globulin 3.3 g/dL (1.7-4.1); Glucose 109 mg/dL (80-110); HEMOLYSIS < 15 (0-50); Potassium 4.4 mmol/L (3.4-5.1); Sodium 137 mmol/L (137-145); Total Protein 7.3 g/dL (6.3-8.2)
[2022-11-26 11:18] LABS: Add Manual Diff / Slide Review NO; Basophils Absolute Auto 0 /uL (0-100); Basophils Percent Auto 0.7 % (0-2); Eosinophils Absolute Auto 200 /uL (0-450); Eosinophils Percent Auto 3.6 % (2-4); Hematocrit 45.1 % (41-53); Lymphocytes Absolute Auto 800 /uL (1100-4500); Lymphocytes Percent Auto 14.1 % (25-40); Mean Corpuscular HGB Conc 33.3 % (30-36); Mean Corpuscular Hemoglobin 26.5 PG (26-34); Mean Corpuscular Volume 79.4 fL (80-100); Monocytes Absolute Auto 400 /uL (0-900); Monocytes Percent Auto 6.3 % (3-14); Neutrophils Absolute Auto 4500 /uL (1500-7000); Neutrophils Percent Auto 75.3 % (50-75); Platelet Count 196 X10^3/uL (150-400); Red Blood Cell Count 5.68 X10^6/uL (4.5-5.9); Red Cell Distribution Width 15.3 % (11.6-14.8)
[2022-11-26 11:19] LABS: Procalcitonin 0.29 ng/mL (<0.5)
[2022-11-26 11:23] LABS: Erythrocyte Sedimentation Rate 9 MM/HR (0-15)
[2022-11-26] MEDS: KETOROLAC 30 MG/ML VIAL 15 MG IV (11:25)
[2022-11-26 11:46] LABS: PTT Partial Thromboplastin Tim 33 SECONDS (26-36)
[2022-11-26 11:47] LABS: C-Reactive Protein Quant 3.1 mg/dL (<1.0)
[2022-11-26] MEDS: HYDROCODONE/ACET 5/325 TABLET 2 TAB PO (12:19)
[2022-11-26 12:31] VITALS: BP 134/77; PULSE 62; RESP 16; O2SAT 97
== END 2022-11-26 12:31 | disposition home or self-care (01) ==
PROVIDERS: Emergency Provider Emergency Medicine; PCP Internal Medicine
DX: J32.4 Chronic pansinusitis (principal); R51.9 Headache, unspecified; Z79.01 Long term (current) use of anticoagulants
CPT/HCPCS: 36415; 70450; 80053; 84145; 85025; 85610; 85651; 85730; 86140; 96374; 96375; 99284; J1885; J2765

== ENCOUNTER → 2023-08-16 06:46 | Outpatient (CLI) | payer MEDICARE, OTHER, SELFPAY ==
[2023-08-16 08:39] LABS: Add Manual Diff / Slide Review NO; Basophils Absolute Auto 0 /uL (0-100); Basophils Percent Auto 0.6 % (0-2); Eosinophils Absolute Auto 200 /uL (0-450); Eosinophils Percent Auto 4.7 % (2-4); Hematocrit 48.6 % (41-53); Hemoglobin 15.8 g/dL (13.5-17.5); Lymphocytes Absolute Auto 1700 /uL (1100-4500); Lymphocytes Percent Auto 31.7 % (25-40); Mean Corpuscular HGB Conc 32.6 % (30-36); Mean Corpuscular Hemoglobin 26.4 PG (26-34); Monocytes Absolute Auto 600 /uL (0-900); Monocytes Percent Auto 10.8 % (3-14); Neutrophils Absolute Auto 2800 /uL (1500-7000); Neutrophils Percent Auto 52.2 % (50-75); Platelet Count 193 X10^3/uL (150-400); Red Blood Cell Count 5.99 X10^6/uL (4.5-5.9); White Blood Cell Count 5.3 X10^3/uL (4.5-11.0)
[2023-08-16 09:02] LABS: Alanine Aminotransferase 25 IU/L (<50); Albumin Globulin Ratio 1.3 (1.0-2.8); Alkaline Phosphatase 60 U/L (38-126); Aspartate Aminotransferase 29 IU/L (17-59); BUN Creatinine Ratio 18.6 (6-22); Bilirubin Total 0.6 mg/dL (0.2-1.3); Blood Urea Nitrogen 19 mg/dL (9-20); Calcium 10.1 mg/dL (8.4-10.2); Carbon Dioxide 29 mmol/L (22-32); Chloride 106 mmol/L (98-107); Cholesterol 213 mg/dL (140-199); Estimated Glomerular Filt Rate > 60 mL/min (>60); Glucose 94 mg/dL (80-110); HDL Cholesterol 40 mg/dL (40-60); HEMOLYSIS < 15 (0-50); LDL Cholesterol Calculated 149 mg/dL (<100); Potassium 4.8 mmol/L (3.4-5.1); Sodium 141 mmol/L (137-145); Triglycerides 122 mg/dL (35-150)
== END ==
LOC: LAB 06:47
PROVIDERS: PCP Internal Medicine; Referring Provider Internal Medicine; Visit Provider Internal Medicine
DX: I10 Essential (primary) hypertension (principal); D68.51 Activated protein C resistance; Z79.01 Long term (current) use of anticoagulants
CPT/HCPCS: 36415; 80053; 80061; 85025

== ENCOUNTER → 2023-08-27 09:31 | Outpatient (CLI) | payer MEDICARE, OTHER, SELFPAY ==
--- NOTE | 2023-08-27 09:34 | DI.CT.S_ITS ---
PROCEDURE: CT KNEE RIGHT WITHOUT CON INDICATIONS: Pain in right ankle and joints of right foot TECHNIQUE: Noncontrast 1-1.5 mm axial sections acquired from the mid-patella to the proximal tibia, with coronal and sagittal reformats. COMPARISON: None. FINDINGS: Image quality: Excellent. Bones: Moderate tricompartmental osteoarthritis is seen most notably in medial femoral tibial compartment with joint space narrowing, subchondral sclerosis and marginal osteophyte formation. There is no acute fracture or dislocation. Slight lateral subluxation of patella is noted. No suspicious bony lesions. Nonspecific subcortical cystic changes are noted involving base of tibial spine near ACL and PCL insertions. Soft tissues: There is no abnormal soft tissue calcifications. Moderate size right knee joint effusion is noted, no calcified intra-articular loose bodies. Distal quadriceps tendon and patellar tendon are grossly intact. No definite full-thickness rupture of ACL or PCL is seen. No full-thickness rupture of the medial or lateral collateral ligaments. No soft tissue mass or drainable fluid collection is seen. IMPRESSION: 1. 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 No acute fracture or dislocation. Lateral subluxation of patella. No suspicious bony lesions. 2. Moderate joint effusion. No calcified intra-articular loose bodies. No abnormal soft tissue calcifications. No gross full-thickness tendon or ligament rupture. No soft tissue mass or drainable fluid collection. Dictated by: Amadeo Jarquin M.D. on 08/27/2023 at 11:53 Approved by: Amadeo Jarquin M.D. on 08/27/2023 at 12:06
--- NOTE | 2023-08-27 09:34 | DI.CT.S_ITS ---
PROCEDURE: CT ANKLE RIGHT WITHOUT CON INDICATIONS: Pain in right ankle and joints of right foot TECHNIQUE: Noncontrast 1-1.5 mm axial sections acquired from above the tibiotalar joint to the bottom of the calcaneus, with coronal and sagittal reformats. COMPARISON: None. FINDINGS: Image quality: Excellent. Bones: Moderate to severe tibiotalar joint osteoarthritic changes are seen with significant joint space narrowing, extensive subchondral sclerosis and marginal osteophyte formation. Moderate osteoarthritic changes are not also seen in rest of the midfoot and hindfoot. No definite osteochondral injuries of talar dome is seen. No evidence of avascular necrosis. Well corticated fragment adjacent to anterior and medial aspect of tibiotalar joint is seen suggestive of old injury. Similar corticated fragments adjacent to tip of lateral malleolus is seen suggestive of old injury. No acute fracture or dislocation. No suspicious bony lesions. Small well-defined plantar calcaneal enthesophyte is seen. Soft tissues: There is small to moderate tibiotalar joint effusion. Peripherally calcified structures are seen in posterior aspect of tibiotalar joint which may represent small loose bodies measures up to 6 mm in size. Vascular calcifications are noted in distal lower leg and around midfoot and hindfoot. No other abnormal soft tissue calcifications. No gross full-thickness ankle tendon rupture. No discrete soft tissue mass or drainable fluid collection. IMPRESSION: 1. 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 Moderate osteoarthritic changes throughout rest of the midfoot and hindfoot. Well-defined plantar calcaneal enthesophyte. 2. Old injury involving anterior aspect of tibiotalar joint and tip of lateral malleolus with well corticated osseous fragments. No acute fracture or dislocation. No definite osteochondral injuries of talar dome. 3. Small to moderate tibiotalar joint effusion with possible loose body in posterior aspect of tibiotalar joint as above. No other abnormal soft tissue calcifications. No gross full-thickness ankle tendon rupture. No soft tissue mass or drainable fluid collection. Dictated by: Amadeo Jarquin M.D. on 08/27/2023 at 12:06 Approved by: Amadeo Jarquin M.D. on 08/27/2023 at 12:14
== END ==
LOC: CT 09:32
PROVIDERS: PCP Internal Medicine; Referring Provider Orthopaedic Surgery Foot and Ankle Surgery; Visit Provider Orthopaedic Surgery Foot and Ankle Surgery
DX: S83.011A Lateral subluxation of right patella, initial encounter (principal); M17.11 Unilateral primary osteoarthritis, right knee; M25.461 Effusion, right knee; M19.071 Primary osteoarthritis, right ankle and foot; M77.31 Calcaneal spur, right foot; M25.571 Pain in right ankle and joints of right foot
CPT/HCPCS: 73700

== ENCOUNTER → 2023-08-28 07:46 | Outpatient (CLI) | payer MEDICARE, OTHER, SELFPAY | PROVIDERS: PCP Internal Medicine; Referring Provider Orthopaedic Surgery Foot and Ankle Surgery; Visit Provider Orthopaedic Surgery Foot and Ankle Surgery | DX: Z01.818 Encounter for other preprocedural examination (principal) | CPT/HCPCS: 93005; 93010 ==

== ENCOUNTER 2023-10-03 08:55 | Day surgery (SDC) | payer MEDICARE, OTHER, SELFPAY ==
[2023-09-26 14:42] VITALS: BMI 29.2
--- NOTE | 2023-10-02 14:26 | PM.AN.REGBLK ---
Regional Block Pre-procedure Procedure: Continuous Lumbar Epidural for L&D Medications: Current Medications Generic Name Dose Route Start Last Admin Trade Name Freq PRN Reason Stop Dose Admin Acetaminophen 975 mg 10/02/23 13:32 Acetaminophen 325 Mg Tablet PO NOW PRN Pain, Moderate (4-6) Lactated Ringer's 1,000 mls @ 42 mls/hr 10/02/23 13:45 Lactated Ringers IV CONT EVETTE Allergies: Allergies Allergy/AdvReac Type Severity Reaction Status Date / Time No Known Drug Allergies Allergy Verified 08/28/23 15:57
[2023-10-03] VITALS (10 sets, daily range): BP systolic 86–137; BP diastolic 53–85; PULSE 50–77; RESP 12–19; TEMP 36.1–37.1; O2SAT 92–97; BMI 28.1
[2023-10-03] MEDS: ACETAMINOPHEN 325 MG TABLET 975 MG PO (09:59)
[2023-10-03] MEDS: LACTATED RINGERS 1,000 ML 42 ML IV ×2 (10:12→13:30)
--- NOTE | 2023-10-03 11:13 | PM.PREOP ---
Pre-operative Note Interval Note History & Physical reviewed/Exam performed by Physician: Yes Changes to H&P: No
--- NOTE | 2023-10-03 11:37 | SUR.OPER ---
Supine on padded OR bed, head on pillow, arms secured on padded arm boards at <90 degrees abduction, legs uncrossed, safety belt at thigh, tape over blanket over non op lower leg. operative leg resting on stack of blankets with blanket hip bump.
[2023-10-03] MEDS: CEFAZOLIN 2 GM/100 ML PREMIX 100 ML IV ×2 (12:04→21:45)
[2023-10-03] MEDS: BUPIVACAINE 0.25% (PF) 30 ML, EPINEPHrine 0.15 MG INJ (12:36)
--- NOTE | 2023-10-03 16:46 | DI.RAD.S_ITS ---
PROCEDURE: XR ANKLE RT MIN 3V INDICATIONS: RIGHT TOTAL ANKLE REPLACEMENT TECHNIQUE: 3 intraoperative views of the ankle were acquired. [facility], CR, XR ANKLE 3 VIEWS WEIGHT BEARING RIGHT, 08/20/2023, 9:09. FINDINGS: Right ankle prosthesis. Tibia prosthesis is replaced. New plate and screw fixation hardware at the medial aspect of the tibia. Hardware projects in the expected location. IMPRESSION: Intraoperative guidance provided. Dictated by: Amandeep Conner M.D. on 10/03/2023 at 18:22 Approved by: Amandeep Conner M.D. on 10/03/2023 at 18:23
--- NOTE | 2023-10-03 17:08 | PM.OP.1 ---
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 He is failed conservative treatment. He has been indicated for a total ankle arthroplasty. He also has a gastroc tightness and we discussed the possibility of requiring additional procedures including ligament balancing procedures gastroc recession and additional osteotomies and fixation procedures as indicated. The risks and benefits of the procedure have been discussed with the patient and given the opportunity to ask questions. The risks of surgery include but are not limited to infection, malunion, nonunion, persistence of pain, damage to nerves and blood vessels, posttraumatic arthritis, DVT, PE, coardiopulmonary complications and . The patient expressed a thorough understanding of the risks and benefits of surgery and has elected to proceed. Consent was signed in the office. During the operation, the services of a physician ophthalmic surgical assistant were medically indicated and necessary to provide the exposure of the operative site for the surgical procedure and to maintain the limb in a proper position to carry out the operation safely and efficiently. Without a qualified registrar assistant being present this would extended the operative procedure and made the procedure technically more difficult to perform. Surgeon: Dori Moe Network Specialist: Eliel Juarez Click Yes if Unassisted: Yes Anesthesia Type: General Operative Notes Findings: End-stage ankle arthritis right ankle. Gastroc contracture. Total ankle arthroplasty was performed. On final impaction there was a incomplete fracture crack at the medial malleolus at the juncture of the implant. This was visualized and address intraoperatively and stabilized with a plate and screws. Closure Type: primary Specimen(s): none sent Prosthetic devices, grafts, tissues, transplants, or devices: [place] Inbone tibia size 4 (stem with top stem 14 mid stem 14 mid 16 base 18) Talus in bone size 3 Poly 12 mm Medial malleolus ORIF fixation with 1/3 tubular plate from the [employer] Ev[employer] set 2x3.5 locking screws 2x 4.0 cannulated screws fully threaded Estimated Blood Loss (mL): 100 Blood products transfused: none Tourniquet time (min): 130 Procedure in detail: The patient was seen in the preoperative area the site of surgery was marked informed consent confirmed. Final questions were answered. The patient was also seen by the anesthesiologist and a peripheral nerve block was placed for postoperative pain control. The patient was brought back to the operating room by the anesthesia team positioned supine on the operative table. All bony prominences were well padded. A well-padded thigh tourniquet was placed. The ipsilateral thigh bump was placed. General anesthesia was administered. The right lower extremities prepped and draped in the standard sterile fashion with a prescub then standard prep. The right lower extremity was then draped in the standard sterile fashion. Formal time-out procedure was performed confirming the patient's side and site of surgery administration of appropriate preoperative antibiotics which in this case were 2 g of Ancef. All were in agreement. Implants were in the room and available. Attention was then turned to the right lower extremity an Esmarch bandage was used for exsanguination the tourniquet was elevated to 250 mmHg and stayed there for 130 minutes. Gastroc recession Examination under anesthesia demonstrated gastroc contracture the patient was brought into a figure 4 and a gastroc recession was completed this was a 3 cm incision approximately 14 cm above the Achilles insertion on the heel taken just medial to midline to avoid the sural nerve. This was taken down through the skin subcutaneous tissue. Gastroc fascia was opened. Gastroc was isolated the knee was placed on extension and dorsiflexion stretch and the gastroc fascia was released from medial to lateral including the plantaris to provide a 2.5 cm stretch and postoperative examination demonstrating dorsiflexion 15? with the knee extended which was an improvement from 5? preop. Total ankle arthroplasty Standard anterior approach to the ankle was drawn out on the leg approximately 12 cm incision was taken about 1 cm lateral to the tibial crest and extended longitudinally bisecting the tibiotalar joint extending to the talonavicular joint. This was taken down through the skin and subcutaneous tissues care was taken to isolate and protect the superficial peroneal nerve branch. Next the extensor retinaculum was opened and tagged with an 0 Vicryl for later repair. The EHL tendon sheath was opened and the EHL and neurovascular bundle were retracted laterally and the tibialis anterior was capped into its sheath and retracted medially. This brought us down directly on the anterior tibia. Dissection was taken all the way to the talonavicular joint to expose the talus. The capsule was divided and retracted. The joint demonstrated end-stage tibiotalar arthritis with large anterior distal tibial spurs and a medial large talar spur. The Bovie cautery and elevators were used to remove the periosteum along the anterior tibia and expose the joint. Gelpi and Weitlaner retractors were used to protect the EHL and neurovascular bundle. The prophecy in bone guides were then brought out. The tibial guide was placed along the bone to the area of best fit and was secured in place with the pins. This was checked on intraoperative fluoroscopy for alignment. Once this was complete the guide was removed and the cut guide was placed. The notch was drilled and then the tibial cut was completed. The cut guide was then removed and the quarter osteotome was used in a combination of the corner chisel and osteotomes to remove the tibial bone fragment. Once this was complete attention was turned to the talus. The talus prophecy guide was placed along the talus and checked on fluoroscopy and pinned in place. Once this was appropriate level the cut guide was placed in for the flat cut talus and this was completed this was a thin cut taking minimal bone from the talus. Once the tibia and talar bone was removed the wound was inspected and the next prophecy guide was applied. The frame was set up and the trocar for entry into the calcaneus was applied. This was then drilled under intraoperative fluoroscopic guidance to confirm appropriate alignment for drilling for the tibial stem once this was completed the appropriate reaming was done to fit the prophecy plan for the top stem of 14 mid stems of 14-16 in the base of 18. Once this was completed the base was assembled and advanced in the standard in bone fashion into the tibial bone and the base plate was impacted. On final impaction of the base plate it was noted to have a small incomplete fracture at the medial malleolus anteriorly just at the shoulder of the cut. This was protected intraoperatively and then fixed with an ORIF using plate and screws detailed below. The tibia trial was then placed with the poly trial and ankle alignment and stability were appropriate with the 12 mm poly. The final drill holes for the tibial implant were drilled through guide and then the final selected talus implant which was size 3 was placed and impacted in the standard fashion. Once this was complete the final poly was placed. Gutters were inspected medial and laterally found to be appropriate. Medial malleolus ORIF The medial malleolus ORIF was addressed by using a 1/3 tubular locking cable plate from the [employer] EVOS set this was applied in an antiglide fashion with locking screws proximally due to limited bone around the stemmed implant. Distally there was too little bone for the shortest and 10 mm screw therefore separate fixation with 2.x 4.0 cannulated screws from the [employer] set. was completed once stabilization was complete the fracture was reduced and no motion was noted at the site. The tourniquet was released after 2 hours and the wound was irrigated. Hemostasis was achieved. The wound was closed in layers with 0 Vicryl in the deep capsule. 2-0 PDS was used to close the retinaculum . 4-0 Monocryl was placed subcutaneous followed by 3-0 nylon. 3-0 nylon was used to close the foot incision. 12 cc of 0.25% Marcaine was used as a local anesthetic after the incision was closed. Well-padded dressing was placed with Xeroform, 4 x 4 gauze, Webril, bulky San cotton, posterior and U splint was applied. Drapes removed the patient was woken from anesthesia and taken to PACU in good condition. All counts were correct. There no immediate complications from this procedure Complications: other (intraoperative incomplete medial malleolus fracture - orif preformed) Post-operative Condition: stable Disposition: PACU Plan for aftercare: nwb RLE-elevate extremity heart level as much as possible 1st few weeks after surgery to reduce pain and swelling. May resume Eliquis on postoperative day 1. Follow up as scheduled in orthopedic clinic.
[2023-10-03] MEDS: ONDANSETRON 4 MG/2 ML INJ IV (17:27)
[2023-10-03] MEDS: OXYCODONE IR 5 MG TABLET PO (17:27)
[2023-10-03] MEDS: fentaNYL 100 MCG/2 ML INJ IV ×2 (17:35→17:49)
[2023-10-03] MEDS: KETOROLAC 30 MG/ML VIAL IV (18:00)
[2023-10-03] MEDS: HYDROMORPHONE 1 MG INJ IV (18:15)
[2023-10-03] MEDS: hydrOXYzine 50 MG/ML INJ IM (18:15)
[2023-10-03] MEDS: SENNOSIDES 8.6 MG TABLET 17.2 MG PO (21:45)
[2023-10-03] MEDS: GABAPENTIN 300 MG CAPSULE PO (21:45)
[2023-10-03] MEDS: DOCUSATE 100 MG CAPSULE PO (21:45)
[2023-10-03] MEDS: LACTATED RINGERS 1,000 ML 100 ML IV (21:53)
[2023-10-04] MEDS: HYDROMORPHONE 2 MG TABLET PO ×3 (02:01→09:23)
[2023-10-04] MEDS: CEFAZOLIN 2 GM/100 ML PREMIX 100 ML IV (03:21)
[2023-10-04 05:14] LABS: Hematocrit 40.3 % (41-53); Hemoglobin 13.1 g/dL (13.5-17.5); Mean Corpuscular HGB Conc 32.6 % (30-36); Mean Corpuscular Hemoglobin 26.3 PG (26-34); Mean Corpuscular Volume 80.5 fL (80-100); Platelet Count 155 X10^3/uL (150-400); White Blood Cell Count 11.2 X10^3/uL (4.5-11.0)
--- NOTE | 2023-10-04 08:48 | CM.DANOTE ---
Initial DCP Assessment Visit Note Reviewed EMR and team rounds for status updates. Went to meet with pt for f/f visit, however he was busy working with PT. Pt resides independently with his spouse in their own home here in [place]. He's been medically cleared for d/c later this morning, and his spouse will transport him home. Payor: Medicare attending: Dr. Moe Pt is a 73 year-old M with a hx of several years with worsening R-sided ankle pain. He does not use any assistive devices at baseline. This morning, pt is found to be recovering well post-op day 1, has all of the medical equipment that he needs for home recovery needs, and has a f/u appt already setup with Ortho for post-op wound check. OP therapies will be discussed at that time. DCP will continue to follow and assist with any further evolving needs prior to discharge. Discharge Planning/Care Management CM Discharge Assessment Start: 10/04/23 08:36 Freq: Status: Active Protocol: Document 10/04/23 08:37 DPL (Rec: 10/04/23 08:47 DPL [id number]) Discharge Planning Assessment Assigned Data Operations Manager FARIDEH Byrne Advance Directives? No History Provided By Medical Record Expected Length of Stay 1 Has Patient been admitted in last 30 No days? Prior Living Arrangements House Household Members spouse Type of transporation used prior to Drives own vehicle admit Independent with ADL's Yes Is patient alert and oriented? Yes Caregiver for Another No Comment No assistive devices used at baseline. Comment No identified home d/c needs at this time. Barriers to Discharge No Discharge Plan Home Community Services Physical Therapy Transportation Arrangement Spouse Referrals Initiated None needed Whiteboard Updated in Patient Room with Yes name and ext. # of Data Operations Manager Review Status In Process Please Provide Date Initial DC 10/04/23 Assessment Was Performed Pre-Anesthesia Assessment Start: 09/26/23 14:42 Freq: Status: Complete Protocol: Document 09/26/23 14:42 CAB (Rec: 09/26/23 14:57 CAB [id number]) Pre-Anesthesia Assessment Patient Information Reviewed Via Chart Review Comment Recent labs @ Primary Care Provider Saúl Palacios Comment Pre-op visit 08/28/23 and clearance form 08/20/23 scanned Seen Specialist in Last 12 Months Yes Specialist Seen Orthopedist Primary Language [place] Front Services Agent Required No Height 193.04 cm Weight 108.862 kg Body Mass Index (BMI) 29.2 Barriers to Learning None Anesthesia Review Requested No Rubber Press Tender No alcohol intake current Alcohol Intake Frequency Other: Occasional Smoking Status Never smoker Pain Present Pain Reported Patient is completely paralyzed or No completely immobile Is patient on oxygen? No Hx Sleep Apnea No Currently Taking a Beta Osei No Anti-Coagulant Therapy Yes: Eliquis-hold 1-2 days prior per PCP-no bridging required Cardiac Testing No Hx Pacemaker/ICD No Pacemaker Rep Required? No Urinary Catheter Present No Hx Urinary Self Catheterization No Diabetes No Presence of External or Internal Medical Yes: Left hip prosthesis Devices Marital Status Lives With spouse Patient Discharge Plan Description Return Home Advance Directives? No
--- NOTE | 2023-10-04 08:56 | PC.NURSE ---
Patient will be discharged to home today after working with physical therapy. R.foot is warm to touch and ppx2. Soft splinted cast on r.leg and he is tolerating this well. Leg was elevated on pillows when lying down.
[2023-10-04] MEDS: DOCUSATE 100 MG CAPSULE PO (09:20)
[2023-10-04] MEDS: GABAPENTIN 300 MG CAPSULE PO (09:20)
[2023-10-04] MEDS: lisinopriL 20 MG TABLET 40 MG PO (09:20)
[2023-10-04] MEDS: ATORVASTATIN 20 MG TABLET PO (09:21)
--- NOTE | 2023-10-04 09:44 | PT.IIE ---
Current Diagnoses Primary osteoarthritis, right ankle and foot (10/03/23) Primary osteoarthritis, unspecified ankle and foot (10/03/23) Flat foot [pes planus] (acquired), right foot (10/03/23) Surgery Performed Operation Date: 10/03/23 10:45 Actual Procedures p Total Ankle Arthroplasty(Right) - Dori Moe MD s gastroc lengthening, ORIF MEDIAL MALLEOLUS FRACTURE(Right) - Dori Moe MD Surgical History (Last Reviewed 08/28/23 @ 16:34 by Saúl Palacios MD) History of hip replacement (06/15/17) Medical History (Last Reviewed 08/28/23 @ 16:34 by Saúl Palacios MD) Current use of intermodal customer service anticoagulation Essential hypertension (02/08/17) Heterozygous factor V Leiden mutation (06/29/16) History of deep venous thrombosis in adulthood (08/10/16) Mixed hyperlipidemia Physical Therapy Inpatient Evaluation/Re-Eval M1 PT/OT-IP Prior Functional Status Start: 10/04/23 08:14 Freq: NEEDED Status: Active Protocol: Document 10/04/23 08:25 MB (Rec: 10/04/23 09:44 MB [id number]) Medical Review Prior Functional Status Medical History Reviewed Yes Diet/Fluid Consistency Regular Communication WNLs Mobility and Gait I without AD Activities of Daily Living and IADL's I Social History Household Members spouse Living Arrangements House Number of Stairs To Enter/Railing? Pt states that he can live on one floor and there are either 3 steps with left rail to enter or no steps in the back Home Environment Standard Height Toilet,Walk in Shower Home Equipment Front Wheel Walker,Straight Cane,Crutches,Shower Seat with Backrest,Grab Bars In Shower Employment Status Retired M2 PT-IP Current Condition Start: 10/04/23 08:14 Freq: NEEDED Status: Active Protocol: Document 10/04/23 08:25 MB (Rec: 10/04/23 09:44 MB [id number]) Physical Therapy Current Condition Current Condition Evaluation Date 10/04/23 Treatment Diagnosis S/p right medial malleolus ORIF M3 PT-IP Subjective Start: 10/04/23 08:14 Freq: NEEDED Status: Active Protocol: Document 10/04/23 08:25 MB (Rec: 10/04/23 09:44 MB [id number]) Subjective Physical Therapy Visit Type Type Initial Evaluation Visit Start Time 08:25 Visit Stop Time 09:18 Number of JANITORIAL SUPERVISOR Visits 0 Physical Therapy Visit Comments Patient Comments Pt states that he is ready to get OOB Therapy Pain Assessment Location R ankle Intensity 3 Scale Used Numeric (0 - 10) M4 PT-IP Mobility and Gait Start: 10/04/23 08:14 Freq: NEEDED Status: Active Protocol: Document 10/04/23 08:25 MB (Rec: 10/04/23 09:44 MB [id number]) PT-Bed Mobility Assessment Supine to Sit Supine to Sit Independent,Bedrails Sit to Supine Sit to Supine Independent,Bedrails Scooting Scooting to Edge of Bed Standby Assistance Scooting Up and Down in Bed Standby Assistance PT-Transfer Assessment Sit to and From Stand Sit to and from Stand Contact Guard Assistance,1 Person Assistance,Use of Upper Extremities Equipment Transfer Assistive Device Gait Belt,Front Wheeled Walker ,Axillary Crutches Orthotic/Prosthetic Devices or Brace: No Transfers Transfer Destination Bed,Wheelchair Transfer Technique Hopping with LRAD Transfer Ability Level of Assist Contact Guard Assistance, Minimal Assistance,1 Person Assistance,Use of Upper Extremities Comments Mobility Comments Pt is very impulsive and does not wait to follow PT commands before moving, especially with transfers and he tends to put his right foot on the floor and even WB through it when moving back to sitting in the w/c. This behavior does increase risk for right ankle injury and falls and PT is firm with pt about NWB, slowing down and safety awareness. Negative orthostatic assessment with BP and HR in RUE: supine 130/68, 72; standing 136/73, 94, standing 1' 149/79, 88. Gait Assessment Gait Gait Assistance Required: Contact Guard Assist,1 Person Assist Distance (Feet) 20 Able to Maintain Weight Bearing Status No During Gait Assistive Devices Assistive Device Gait Belt,Front Wheeled Walker ,Axillary Crutches Orthotic/Prosthetic Devices or Brace: No Factors Limiting Gait Function Factors Limiting Gait Function Difficulty Following Directions,Incoordination, Limited Range of Motion,Pain, Poor Balance,Poor Safety Awareness Comments Gait Comments Pt tends to put right foot down with transfers, gait and stair training and PT provides ongoing firm VCs to hop on left foot and to keep right foot off of the floor. Pt is not receptive to benefits of 2WRW over crutches and he prefers crutches with gait. Gait distances are: 20' with RW, 80' with crutches, 5'x2 with RW from w/c to steps and 15' with RW from w/c to bed Stair Climbing Assessment Evaluation Level of Assist On Stairs Minimal Assistance,1 Person Assistance Devices Stair Climbing Assistive Devices Axillary Crutches,Front Wheel Walker Technique/Endurance Stair Climbing Direction Ascend and Descend Stair Climbing Technique Step to Step Number of Steps Climbed 3 Query Text: Stair Climbing Set # Repetitions (reps) 1 Comments Stair Climbing Comments Pt does not wait for PT and starts to hop up steps with crutches forward and he gets stuck and tends to put down his right foot and WB for ascend and descend forward with crutches. PT provides education and demo about proper crutch use for stair training as well as RW use for stair training (ascend backwards) and when pt attempts one step up backwards , he does not follow commands and WB through right foot and states he will enter through the back of the house where there are no steps. With increased time up, pt's fatigue and impulsivity and WB through right foot worsen PT-Balance Assessment Sitting Balance and Reactions Static Sitting Balance Ability Good Dynamic Sitting Balance Ability Good Standing Balance and Reactions Static Standing Balance Ability Good Dynamic Standing Balance Ability Fair Device Used Crutches or RW, tends to put right foot down M5 PT-IP Objective Assessments Start: 10/04/23 08:14 Freq: NEEDED Status: Active Protocol: Document 10/04/23 08:25 MB (Rec: 10/04/23 09:44 MB [id number]) Orientation Orientation/Cognition Level of Alertness Alert Orientation Name Language Function Ability No Deficits Noted Safety Awareness Decreased Safety Awareness Memory Description No Deficits Noted Gross Range of Motion Upper Extremity ROM Assessment Within Functional Limits Lower Extremity ROM Assessment Right Impaired Impairments Right ankle in cast and left ankle limitations s/p old surgery with DF grossly 50% normal range and functional for hopping Strength Upper Extremity Strength Assessment Within Functional Limits Lower Extremity Strength Assessment Right Impaired Ankle Right ankle in cast M6 PT-IP Treatment Start: 10/04/23 08:14 Freq: NEEDED Status: Active Protocol: Document 10/04/23 08:25 MB (Rec: 10/04/23 09:44 MB [id number]) Physical Therapy Treatment Education Education Provided Safety M7 PT-IP Assessment and Plan Start: 10/04/23 08:14 Freq: NEEDED Status: Active Protocol: Document 10/04/23 08:25 MB (Rec: 10/04/23 09:44 MB [id number]) PT Summary Assessment and Plan Potential Rehabilitation Potential Good Status of Condition at Evaluation Evolving Summary Impairments Balance,Coordination,Transfers ,Gait Assessment Summary Pt is a 73 y/o male with history of left ankle surgery who is now POD1 right malleolar ORIF. Pt is strong and moves well though he is very impulsive and has decreased safety awareness and adherence to NWB right foot. Pt demonstrates this throughout transfers and gait trials with crutches and RW as well with stair training. After challenge with stair training, he states that he will enter home through the back door without steps. His will pick him up and drop him off as close as she can to the back door. Frequency of Treatment Frequency Of Treatment Discharge Weight Bearing Status Weight Bearing Status Non-Weight Bearing Recommendations To Nursing Amount of Assist Needed 1 Person Assist Discharge Recommendations PT Discharge Recommendations Home with 04/12 Assist Available,Outpatient PT Transportation Needs at Discharge Private Vehicle
--- NOTE | 2023-10-04 10:01 | PM.DS.1 ---
History of Present Illness History of Present Illness Chief complaint: OPB Narrative: Rodney is a pleasant 73 year old male who is POD#1 s/p right total ankle arthroplasty by Dr. Moe. Patient suffered from severe post-op pain last night and required two regional nerve blocks postoperatively. He was admitted to the hospital for IV pain control but reports this morning he is feeling much better and his pain is tolerable. He denies any sensations his right toes suggesting nerve block is still intact. He expresses concerns that his postop pain medication is oxycodone 5mg but this did almost nothing to relieve his pain yesterday. He has a history of DVT and has been chronically anticoagulated on Eliquis, he plans to re-start this today at his evening dose. Urinating well without issue. Lives at home with who is willing and able to aid in and patient's postop recovery, he has 3 steps at his home but does have crutches and a walker to aid in his nonweightbearing status during his recovery. Denies fever, chills, chest pain, SOB, nausea, vomiting. Operative Date/Time/Diagnoses Date of procedure: 10/03/23 Time of procedure: 12:00 Pre-op diagnosis: Right ankle arthritis Gastroc tightness right leg Post-op diagnosis: other (Same and medial malleolus fracture) Procedure & Clinicians Procedure: Total ankle arthroplasty right ankle CPT code 28296 gastroc recession right CPT code 23260 separate incision modifier 59 Open reduction internal fixation medial malleolus fracture CPT code 62713 Same procedure as scheduled: Yes Indications: The patient is a 73-year-old male with end-stage ankle arthritis on the right side. He is failed conservative treatment. He has been indicated for a total ankle arthroplasty. He also has a gastroc tightness and we discussed the possibility of requiring additional procedures including ligament balancing procedures gastroc recession and additional osteotomies and fixation procedures as indicated. The risks and benefits of the procedure have been discussed with the patient and given the opportunity to ask questions. The risks of surgery include but are not limited to infection, malunion, nonunion, persistence of pain, damage to nerves and blood vessels, posttraumatic arthritis, DVT, PE, coardiopulmonary complications and . The patient expressed a thorough understanding of the risks and benefits of surgery and has elected to proceed. Consent was signed in the office. During the operation, the services of a physician surgical nurse practitioner were medically indicated and necessary to provide the exposure of the operative site for the surgical procedure and to maintain the limb in a proper position to carry out the operation safely and efficiently. Without a qualified assistant facility manager being present this would extended the operative procedure and made the procedure technically more difficult to perform. Surgeon: Dori Moe Mason Apprentice: Eliel Juarez Click Yes if Unassisted: Yes Anesthesia Type: General Discharge Providers Provider Discharge Date: 10/04/23 Primary care physician: Saúl Palacios MD Consults: 10/03/23 18:26 Consult to Discharge Planning Routine Comment: Consult to Physical Therapy Evaluate & Treat Comment: nwpauly angulo Physician Instructions: Evaluate and Treat Discharge provider: Barbie Gann PA-C Summary Hospital Course Discharge Diagnosis: right ankle arthritis s/p right total ankle arthroplasty Hospital Course: Hospital course complicated by poor pain control postoperatively. Exam Vital Signs (past 8 hours): Fraction of Inspired Oxygen 21 SaO2/FiO2 Ratio 447 Oxygen Delivery Method Room Air Oxygen Flow Rate 0 Narrative Exam Narrative: Lying in bed comfortably during the interview today, no acute distress. Neuro General: patient alert, patient awake and patient oriented x3 Other: No sensation to light touch in the right foot/toes. (nerve block still in effect) Cannot wiggle toes, ankle range of motion not assessed due to splint. Good AROM right knee and hip. Brisk capillary refill. Moderate swelling of the right toes. Extrem Other: Patient is maintained in a right ankle posterior U splint with an Marc bandage wrapped around. Foot is elevated on pillows. SCDs are not on. No drainage seen through the post-surgical dressings. Psych Appearance: grossly normal Objective Labs 10/04/23 04:52 Labs: Laboratory Results - last 24 hr 10/04/23 04:52 WBC 11.2 H RBC 5.00 Hgb 13.1 L Hct 40.3 L MCV 80.5 MCH 26.3 MCHC 32.6 RDW 15.0 H Plt Count 155 PFSH Medical History Mixed hyperlipidemia Current use of long-term anticoagulation Essential hypertension (02/08/17) History of deep venous thrombosis in adulthood (08/10/16) Heterozygous factor V Leiden mutation (06/29/16) Surgical History History of hip replacement (06/15/17) Social History marital status: number of children: 3 household members: spouse lives independently: Yes caregiver/support person: No housing: house pets and animals: No education level: college occupational status: other 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 keisha/anglican: Anglican leisure activities: exercise and fishing Smoking Status: Current every day smoker Tobacco: How many years used: 0 Smokeless tobacco user: chewing tobacco quit status: has quit before second hand exposure: No alcohol intake: current substance use type: does not use Discharge Assessment & Plan Assessment and Plan Assessment: right ankle arthritis s/p right total ankle arthroplasty Plan of Treatment: 1) plan to discharge to home today with 2) continue multimodal pain management. A small prescription for Dilaudid was sent to patient's pharmacy today. He has other postop pain medications at home already. 3) resume Eliquis b.i.d. this evening. Reminded patient SCDs are to be on and functioning while he is in bed in the hospital. 4) Keep dressing intact, clean, dry until 2 week postop appointment. Do not remove the splint, NWB to the RLE. Keep the right foot elevated as much as possible to help alleviate swelling and pain. 5) Follow up at [facility] in 2 weeks for a postop appointment and wound check. All patient's questions were answered, he demonstrates understanding and are in agreement with the plan. Call our office if any questions or concerns arise. Discharge Plan Discharge Plan Patient Disposition: Home Discharge orders & Medications Discharge Orders: Discharge (Order); Ordered 10/04/23 Ordered By: Barbie Gann Prescriptions: New oxycodone 5 mg tablet 5 mg PO Q4H PRN (Reason: pain) Qty: 40 0RF Rx Instructions: Postop exempt ondansetron 4 mg tablet,disintegrating 4 mg PO Q8H PRN (Reason: nausea and vomiting) Qty: 5 1RF hydromorphone 2 mg Tablet 2 mg PO Q4HR PRN (Reason: Pain, Moderate (4-6)) Qty: 12 0RF Continued lisinopril 40 mg tablet 40 mg PO DAILY Qty: 90 3RF Hold Instructions: no change in bp atorvastatin 20 mg tablet 20 mg PO DAILY Qty: 90 3RF Eliquis 5 mg tablet 5 mg PO BID Qty: 180 3RF (DME) Disabled Parking See Rx Instructions .ROUTE .MEDSUPPLY Qty: 1 0RF Rx Instructions: Patient qualifies for disabled parking as per the attached form. Follow up/Referrals: Dori Moe MD [Physician] - 10/23/23 9:30 am (appt:10/22 @ 9:[address] Moe @ [facility] appt:11/12 @ 9:[address] Moe @ [facility]) Saúl Palacios MD [Primary Care Provider] - Diet/Activity/Treatments Diet: Diet as Tolerated Other treatments: At-Home Instructions - Dr. Moe Surgery: Total ankle arthroplasty Cast/Splint/Dressing Care Instructions 1) Keep cast/dressing clean and dry. 2) May bathe - but cast/dressing must remain dry. 3) Should the cast become wet, you need to call your physician's clinic immediately for cast removal and replacement. Moisture can cause skin breakdown and lead to infection if left untreated. 4) Do not stick any sharp object down the cast to itch, as this can cause scrapes/cuts/punctures which can lead to infection. 5) Observe for increasing pain in the extremity with the cast, finger/toe-tips turning blue/purple, or numbness and tingling in your toes/fingers. Should any of these symptoms arise, you need to be seen immediately for evaluation of swelling and increasing compartment pressures within your affected extremity. 6) Keep your affected extremity elevated - Toes Above your Nose? - This is wong in the first two weeks after surgery to minimize swelling. 7) You may ice your extremity, being careful to prevent melting ice from saturating into the splint/cast. Activity No heavy lifting greater than 10 pounds. No [address] while on narcotic pain medication. Do not get your dressing/cast/splint wet! You must remain non-weight bearing on your operative extremity. Use crutches or a walker for ambulation. No driving until you are otherwise instructed by your physician. This will be addressed at your first follow-up appointment. Discharge Pain Medications You will be given a prescription for pain medication. You should start taking this the same day after your surgery. Wean off as tolerated. Do not wait to take the pain medication until the pain is severe, as it will be difficult to catch up once this occurs. The pain medication usually reaches its full effect ~1 hour after ingesting. If you have been sent home on Colace, this medication should be taken until you are off all narcotic (i.e. Vicodin, Percocet, Oxycodone, etc) pain medications, to prevent constipation. You may also obtain this or another stool softener over the counter to prevent or alleviate constipation. Percocet or Vicodin have Tylenol in their ingredient lists. You must be careful not to exceed 3,000mg (3 grams) of Tylenol, from all sources, within a single 24-hr period. This means that you may not take more than 10 pills within a 24-hr period. Do NOT take Regular or Extra Strength Tylenol when taking your Percocet or Vicodin medications. -Some common side effects of the narcotic pain medications (Percocet, Oxycodone, Vicodin, etc.) include nausea and itching. Benadryl is a great over the counter medication that helps calm your stomach, decreases your anxiety levels, and minimizes the itching. You can easily purchase this at your local pharmacy as an [id number] medication. Please abide by the instructions as printed on the bottle. If your nausea persists, make sure to take small amounts of crackers or other loss mitigation specialist foods. -If have been given oxycodone 5 mg tablets, try to take the smallest dose needed to control your pain. Generally start with 5 mg every 4 hours as needed for pain. However you can increase this if you are having significant pain. The maximum dosage for oxycodone would be 15 mg or three (5 mg) tablets p.o. every 3 hours as needed for pain. As soon as pain is better controlled you should decrease the amount of medication your taking and increase the interval between doses. If you are given Percocet or Vicodin or [place] these are medications with the narcotic and Tylenol in them and they were dosing will need to keep in mind the maximum daily dosages for Tylenol/acetaminophen. Follow-Up/Emergency Contacts Please call for an appointment in either [place] or [place], if one has not been scheduled. Follow up 2 weeks after surgery. [phone] Contact the office if you have any of the following: ? Painful swelling or numbness ? Unrelenting pain ? Fever (over 101?- it is normal to have a low grade fever for the first day or two following surgery) or chills ? Redness around the incisions ? Color changes ? Continuous bleeding or drainage from the incision (a small amount is expected) ? Excessive nausea or vomiting ? Difficulty breathing If you have an emergency that requires immediate attention such as shortness of breath or chest pain, call 911 or proceed to the nearest emergency room. Blood Clot Prophylaxis You will resume your Eliquis on postoperative day 1 Pain Medications: It is the policy of [facility] that narcotic medications will only be refilled during office hours. Additionally, due to the alarming rate of narcotic pain medication abuse/dependence, it has become necessary for physician practices to closely manage patient use of prescription narcotic pain relievers, such as Vicodin ([place]), Percocet, and Oxycodone products. Narcotic pain management in the postoperative period may not exceed 6 weeks. If narcotic pain management is required beyond 90 days, then a referral to a Chronic Pain Specialist will be made. If a request for a medication prescription has been made, the physician must review your chart prior to authorizing the request. Please be patient with office staff. If you call during patient hours, your call may not be returned until the end of the day. Dr. Dori Moe [address] www[email or web address] Skin/Wound/Dressing Care Report to your healthcare provider any signs of infection, such as:: chills, fever, night sweats, increased pain, unusual drainage and unusual redness Visit Report/Discharge Packet Instructions: DI for Prescription Opioid Use, Hydromorphone, DI for Ankle Replacement, Ankle Replacement Stand Alone Forms: Patient Portal/API Discharge Data Primary Care Provider: Saúl Palacios Attending Provider: Dori Moe VTE Deep Vein Thrombosis/Pulmonary Embolism Present on Admission: No
== END 2023-10-04 10:59 | disposition home or self-care (01) ==
LOC: OR 08:56 → AC 08:57
PROVIDERS: PCP Internal Medicine; Referring Provider Orthopaedic Surgery Foot and Ankle Surgery; Visit Provider Orthopaedic Surgery Foot and Ankle Surgery
PROC: (CPT 27702; principal; 2023-10-03 10:45)
PROC: (CPT 27685; 2023-10-03 10:45)
DX: M19.071 Primary osteoarthritis, right ankle and foot (principal); M96.671 Fracture of tibia or fibula following insertion of orthopedic implant, joint prosthesis, or bone plate, right leg; M62.461 Contracture of muscle, right lower leg; M21.41 Flat foot [pes planus] (acquired), right foot; G89.18 Other acute postprocedural pain
CPT/HCPCS: 27702; 27766; 27687; 36415; 64450; 73610; 76000; 85027; 97116; 97161; C1713; C1776; J0171; J0690; J1170; J1885; J2405; J2704; J3010; J3410